=== PATIENT | male | born 1965 | race Caucasian/White ===

== ENCOUNTER 2018-09-15 20:00 | Observation (INO) | payer OTHER ==
[~2018-09-15] VITALS: Ht 180.3 cm; Wt 108.9 kg
[~2018-09-15 20:00] MED LIST: BYETTA5 MCG/0.01; GLUCOPHAGE XR750 MG PO; VICTOZA 2-0.6 MG/0.1 SQ; Z.0.LANTUS100 UNIT/1; Z.0.LOVASTATIN10 MG; Z.0.PRINIVIL10 MG; [UNRECOGNIZED DRUG - OTHER]
[2018-09-15 20:22] LABS: BASOPHILS % 0.5 % (0.0-1.0); EOSINOPHILS # (AUTO) 0.1 (0.0-0.4); EOSINOPHILS % 1.1 % (0.0-6.0); HEMATOCRIT 51.4 % (38.2-49.6); HEMOGLOBIN 17.6 g/dL (14.0-18.0); LYMPHOCYTES # (AUTO) 1.7 (1.0-3.2); LYMPHOCYTES % 19.5 % (18.0-39.1); MEAN CORPUSCULAR HEMOGLOBIN 30.4 pg (28-32); MEAN CORPUSCULAR HGB CONC 34.2 g/dL (31-35); MEAN CORPUSCULAR VOLUME 88.9 fL (81-99); MONOCYTES # (AUTO) 0.7 (0.2-0.8); MONOCYTES % 7.5 % (4.4-11.3); NEUTROPHILS # (AUTO) 6.2 (2.1-6.9); NEUTROPHILS % 71.1 % (38.7-80.0); PLATELET COUNT 178 x10e3/uL (140-360); RED BLOOD COUNT 5.78 x10e6/uL (4.3-5.7); RED CELL DISTRIBUTION WIDTH 11.5 % (11.7-14.4)
--- NOTE | 2018-09-15 20:30 | Diagnostic Imaging Report ---
History:Left-sided facial droop Comparison studies:None Technique: Axial images were obtained from the skull base to the vertex. Coronal and sagittal images reconstructed from the axial data. Intravenous contrast: None Dose modulation, iterative reconstruction, and/or weight based adjustment of the mA/kV was utilized to reduce the radiation dose to as low as reasonably achievable. Findings: Scalp/skull: No abnormalities. Extra-axial spaces: No masses. No fluid collections. Brain sulci: Mildly prominent. Ventricles: Age-appropriate. No hydrocephalus. Parenchyma: No abnormal densities. No masses, hemorrhage, acute or chronic cortical vascular insults. Sellar/suprasellar region: No abnormalities. Craniocervical junction: Patent foramen magnum. No Chiari one malformation. Incidental findings: None. Impression: No acute abnormalities. Chronic findings: 1. Mild generalized cortical volume loss. Signed by: DR Tino Figueroa M.D. on 09/15/2018 8:27 PM
[2018-09-15 20:32] LABS: INR 0.81
[2018-09-15 20:33] LABS: PARTIAL THROMBOPLASTIN TIME 25.5 seconds (23.8-35.5)
--- NOTE | 2018-09-15 20:41 | Diagnostic Imaging Report ---
EXAMINATION: PA and lateral views of the chest. COMPARISON: None CLINICAL HISTORY: Left-sided facial droop DISCUSSION: Lines/tubes: None. Lungs: The lungs are well inflated and clear. No pneumonia or pulmonary edema. Pleura: No pleural effusion or pneumothorax. Heart and mediastinum: The cardiomediastinal silhouette is normal. Bones and soft tissues: No acute bony abnormalities. IMPRESSION: No acute cardiopulmonary abnormalities. Signed by: Dr. Wade Melendez M.D. on 09/15/2018 8:38 PM
[2018-09-15 20:42] LABS: ALANINE AMINOTRANSFERASE 24 IU/L (0-55); ALBUMIN 4.5 g/dL (3.5-5.0); ALBUMIN/GLOBULIN RATIO 1.5 (0.8-2.0); ALKALINE PHOSPHATASE 98 IU/L (40-150); ANION GAP 18.4 mmol/L (8-16); BLOOD UREA NITROGEN 17 mg/dL (7-26); BUN/CREATININE RATIO 21 (6-25); CALCIUM 9.2 mg/dL (8.4-10.2); CARBON DIOXIDE 29 mmol/L (22-29); CHLORIDE 98 mmol/L (98-107); CREATINE KINASE 78 IU/L (30-200); CREATININE, SERUM 0.81 mg/dL (0.72-1.25); EST GLOMERULAR FILTRATION RATE > 60 ML/MIN (60-); GLUCOSE 117 mg/dL (74-118); POTASSIUM 4.4 mmol/L (3.5-5.1); SODIUM 141 mmol/L (136-145)
[2018-09-15 20:48] LABS: BILIRUBIN,URINE NEGATIVE (NEGATIVE); CLARITY,URINE SL CLOUDY (CLEAR); COLOR,URINE YELLOW (YELLOW); KETONES,URINE TRACE (NEGATIVE); LEUKOCYTE ESTERASE ,URINE NEGATIVE (NEGATIVE); NITRITE,URINE NEGATIVE (NEGATIVE); PROTEIN,URINE DIPSTICK NEGATIVE (NEGATIVE); URINE UROBILINOGEN 0.2 mg/dL (0.2 - 1)
--- OUTSIDE RECORDS SUMMARY | 2018-09-15 21:28 | XMS REPORT ---
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 Allergies, Adverse Reactions, Alerts This patient has no known allergies or adverse reactions. Medications This patient has no known medications. Results Test Description Test Time Test Comments Text Results Atomic Results Result Comments CHEST 2 VIEWS 2018-09-15 20:33:00 [place] [address] Patient Name: TRACI VILLAGRAN MR #: [id number] : 1965 Age/Sex: 53/M Req #: [id number] [facility] Physician: Ordered by: BRIGID APPIAH MD Report #: [id number] Location: ER Room/Bed: Procedure: [id number] DX/CHEST 2 VIEWS Exam Date: 09/15/18 Exam Time: 2020 REPORT STATUS: Signed EXAMINATION: PA and lateral views of the chest. COMPAR DOMINGO: None CLINICAL HISTORY: Left-sided facial droop DISCUSSION: Lines/tubes: None. Lungs: The lungs are well inflated and clear. No pneumonia or pulmonary edema. Pleura: No pleural effusion or pneumothorax. Heart and mediastinum: The cardiomediastinal silhouette is normal. Bones and soft tissues: No acute bony abnormalities. IMPRESSION: No acute cardiopulmonary abnormalities. Signed by: Dr. Braxton Copeland M.D. on 09/15/2018 8:38 PM Dictated By: BRAXTON COPELAND MD 37 Transcribed By: CHLOE on 09/15/182037 COPY TO: BRIGID APPIAH MD CT BRAIN WO 2018-09-15 20:25:00 [place] [address] Patient Name: TRACI VILLAGRAN MR #: [id number] : 1965 Age/Sex: 53/M Req #: [id number] Adm Physician: Ordered by: BRIGID APPIAH MD Report #: [id number] Location: ER Room/Bed: Procedure: [id number] CT/CT BRAIN WO Exam Date: Exam Time: REPORT STATUS: Signed History:Left-sided facial droop Comparison studies:None Technique: Axial images were obtained from the skull base to the vertex. Coronal and sagittal images reconstructed from the axial data. Intravenous contrast: None Dose modulation, iterative reconstruction, and/or weight based adjustment of the mA/kV was utilized to reduce the radiation dose to as low as reasonably achievable. Findings: Scalp/skull: No abnormalities. Extra- axial spaces: No masses. No fluid collections. Brain sulci: Mildly prominent. Ventricles: Age-appropriate. No hydrocephalus. Parenchyma: No abnormal densities. No masses, hemorrhage, acute or chronic cortical vascular insults. Sellar/suprasellar region: No abnormalities. Craniocervical junction: Patent foramen magnum. No Chiari one malformation. Incidental findings: None. Impression: No acute abnormalities. Chronic findings: 1. Mild generalized cortical volume loss. Signed by: DR Tino Figueroa M.D. on 09/15/2018 8:27 PM Dictated By: DONALDO FERRERA MD 26 Transcribed By: CHLOE on 09/15/182026 COPY TO: BRIGID APPIAH MD
[2018-09-15] MEDS ORDERED: LISINOPRIL2.5 MG PO (22:12)
[2018-09-15] MEDS ORDERED: NON (22:12)
[2018-09-15] MEDS ORDERED: AMBIEN10 MG PO (22:12)
[2018-09-15] MEDS ORDERED: ZOLPIDEM TARTRATE 10 MG TAB PO ONE (22:15)
[2018-09-15 22:37] VITALS: BP 128/77
[2018-09-15 22:39] VITALS: BP 128/77
[2018-09-16 04:00] VITALS: BP 124/75
[2018-09-16 05:33] LABS: CHOL/HDL RATIO 3.7 (3.9-4.7)
[2018-09-16 07:40] VITALS: BP 113/64
[2018-09-16] MEDS ORDERED: HYDRALAZINE HCL 20 MG/ML VIAL IV PRN (08:15)
[2018-09-16] MEDS ORDERED: ACETAMINOPHEN 325 MG TAB PO PRN (08:15)
[2018-09-16] MEDS ORDERED: ONDANSETRON HCL INJ 2 MG/ML VIAL IV PRN (08:15)
[2018-09-16] MEDS ORDERED: DEXTROSE 50% SYRINGE 50 ML IV PRN (08:15)
[2018-09-16] MEDS ORDERED: LISINOPRIL 2.5 MG TAB PO SCH (09:00)
[2018-09-16] MEDS ORDERED: FAMOTIDINE 20 MG TAB PO SCH (09:00)
[2018-09-16] MEDS ORDERED: ASPIRIN 325 MG TAB EC PO SCH (09:00)
[2018-09-16 11:23] VITALS: BP 122/67
--- NOTE | 2018-09-16 11:43 | Diagnostic Imaging Report ---
EXAMINATION: CT of the cervical spine HISTORY: Tingling sensation in the neck. COMPARISON: None available TECHNIQUE: Multidetector helical axial images were obtained without contrast from the foramen magnum to T1. The images were reconstructed using bone and soft tissue algorithms and were viewed in axial, sagittal and coronal planes. Dose modulation, iterative reconstruction, and/or weight based adjustment of the mA/kV was utilized to reduce the radiation dose to as low as reasonably achievable. FINDINGS: Alignment: Normal alignment and lordosis Soft tissues: Normal Vertebrae: Normal height and density. No acute fracture, infection or neoplasm Degenerative changes: Anterior bridging osteophyte at C3-C5 and from C6 to T2 (DISH). C1-C2: Mild degenerative changes without stenoses. 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 C3-C4: Small disc osteophyte without significant canal or foraminal stenosis. C4-C5: Small disc osteophyte without canal or foraminal stenoses. C5-C6: Small disc osteophyte complex formation, and possible superimposed disc protrusion, moderate canal stenosis. C6-C7: Normal C7-T1: Normal IMPRESSION: 1. Moderate spinal canal stenoses at C2-C3 and C5-C6. 2. No significant foraminal stenosis. 3. The spinal cord cannot be evaluated with CT. Signed by: Dr. Concha Littlejohn M.D. on 09/16/2018 11:39 AM
[2018-09-16] MEDS: INSULIN LISPRO 100 UNIT/1 ML 3ML VIAL SQ SCH ×2 (12:00→16:00)
--- NOTE | 2018-09-16 12:01 | Diagnostic Imaging Report ---
EXAMINATION: MRI of the brain without contrast. HISTORY: Left-sided facial numbness and weakness with facial droop for the last 2 days, cerebrovascular accident. COMPARISON: Head CT on 09/15/2018 TECHNIQUE: Sagittal T2; axial DWI, T2, FLAIR, T1-IR, T2 gradient echo; coronal FLAIR. IMAGE QUALITY: Adequate. FINDINGS: Parenchyma: 1. A few scattered bilateral frontoparietal white matter T2 hyperintense foci, most likely nonspecific minimal chronic microvascular ischemic changes. Otherwise no evidence of abnormal signal intensity or enhancement in the brain parenchyma 2. No mass, hemorrhage, acute or chronic infarcts. Skull: Unremarkable. Vessels: Expected flow voids present in the major arteries and dural sinuses. Mildly prominent right MCA M2 segment near the bifurcation. Extra-axial spaces: No abnormal signal intensity or mass effect. Small right greater than left superior parietal convexity arachnoid cysts without significant mass effect, no midline shift. Brain volume: Mild generalized volume loss. Ventricles: No hydrocephalus or displacement. Foramen magnum: Unremarkable. Sella: Unremarkable. Paranasal / mastoid sinuses: No significant inflammatory disease. IMPRESSION: 1. No acute infarcts. 2. Mild chronic microvascular ischemic changes. Signed by: Dr. Concha Littlejohn M.D. on 09/16/2018 11:58 AM
[2018-09-16 15:24] VITALS: BP 112/57
--- NOTE | 2018-09-16 16:43 | Consultation ---
DATE OF CONSULTATION: September 16, 2018 NEUROLOGY CONSULT NOTE HISTORY OF PRESENT ILLNESS: Mr. Santiago is a 53-year-old lrocw-ctfz-wvmueito man with past medical history significant for hypertension, hyperlipidemia, and diabetes mellitus type 2, admitted to [facility] on September 15, 2018 with symptoms suspicious for a stroke. Beginning 6 days prior to admission, the patient experienced numbness along the left V2 and V3 distributions, left side of the neck, and over the left arm. In addition to the numbness, Mr. Santiago reports mild burning pain and tingling over the left side of the neck, left shoulder, and left arm. Mr. Santiago endorses questionable left facial weakness. He does not report weakness or incoordination of the left hand or arm. He does not report a visual field cut or other disturbance, dysarthria, aphasia, gait impairment, poor balance, dizziness, or confusion. On the day the aforementioned symptoms began, the patient saw a chiropractor for cervical manipulation. Following the cervical adjustment, the symptoms resolved. However, approximally 3 days later, the same symptoms recurred. Once again, Mr. Santiago saw a chiropractor for cervical manipulation. The symptoms resolved for several hours following the cervical adjustment, only to recur the following day. Therefore, Mr. Santiago proceeded to the Emergency Center at [facility] for further evaluation. Upon arrival in the Emergency Center, the patient was afebrile with a blood pressure of 193/102 mmHg and a pulse of 80 beats per minute. His neurological examination was documented as demonstrating mild left-sided facial weakness with "no sparing of forehead." A CT of the brain without contrast was performed while the patient was in the Emergency Center. This study did not reveal recent large territorial ischemia or hemorrhage. Mr. Santiago was admitted to [facility] under observation status for further evaluation and treatment. Mr. Santiago has not experienced similar symptoms previously. 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 Very rarely will he lift computer monitors, CPUs, etc. In addition to these symptoms described above, the patient reports recently worsened psychosocial stress associated with his job. Multiple coworkers have been laid off in recent weeks and months. The patient has accepted a new position with another company. His last day of work is scheduled for Tuesday, September 18, 2018. REVIEW OF SYSTEMS: Left facial numbness, possible left facial weakness, numbness and tingling over the left arm, tinnitus. Otherwise the 12 point review of systems is negative. PAST MEDICAL HISTORY: Hypertension, hyperlipidemia, diabetes mellitus type 2, prior history of nephrolithiasis. PAST SURGICAL HISTORY: Cholecystectomy, plate and screws placed to repair fractures of the 3rd and 4th metacarpals of the left hand, placement of ureteral stent with subsequent removal, multiple lithotripsies. FAMILY MEDICAL HISTORY: The patient's paternal and maternal grandparents are . The paternal grandfather's medical history is unknown. The paternal grandmother is from natural causes. The maternal grandfather's medical history is unknown. The maternal grandmother is from coronary artery disease. Mr. Santiago's father and mother are alive. The father has coronary artery disease. The mother has diabetes mellitus. The patient has one brother, one sister, and one half sister, all of whom are living. The patient's brother has a prior history of skin cancer. His sisters are healthy. Mr. Santiago has one child, a daughter, who is alive and healthy. PAST HOSPITALIZATIONS: Surgeries/procedures as listed, infection of the left foot. SOCIAL HISTORY: Mr. Santiago is . As detailed in the history of present illness, he works in [employer]. The patient reports a remote history of tobacco use. He occasionally smokes cigars. The patient endorses occasional alcohol use. Mr. Santiago does not report current or prior recreational drug use. HOME MEDICATIONS: Lisinopril 2.5 mg by mouth daily, Lovastatin 10 mg by mouth at bedtime daily, metformin XR 1500 mg by mouth daily, Ambien 10 mg by mouth at bedtime daily. ALLERGIES: NO KNOWN DRUG ALLERGIES. NO KNOWN FOOD ALLERGIES. NO KNOWN ALLERGIES TO LATEX. NO KNOWN ALLERGIES TO IODINE OR OTHER CONTRAST MATERIALS. PHYSICAL EXAMINATION: VITAL SIGNS: Height 71 inches, weight 240 pounds. BMI 33.5 kg per meter squared. Blood pressure 122/67 mmHg. Pulse 59 beats per minute. Respiratory rate 16 breaths per minute. Oxygen saturation 96% on room air. GENERAL: The patient is awake and alert. Does not appear distressed. HEENT: Normocephalic and atraumatic. Pupils are equal, round and reactive to light. Moist mucous membranes. NECK: Supple. No appreciable thyromegaly. No appreciable carotid bruits. CARDIOVASCULAR: S1 and S2. Regular rate and rhythm. No murmurs, rubs or gallops. RESPIRATORY: Clear to auscultation bilaterally. No wheezes, rhonchi or rales. EXTREMITIES: The skin is warm and dry. No clubbing, cyanosis or edema. The posterior tibial and dorsalis pedis pulses are 2+ and symmetric. SKIN: No rashes or lesions. NEUROLOGIC: Memory/attention: The patient is awake and alert. Oriented to person, place, time, and situation. CRANIAL NERVES: Cranial nerve I: Not tested. Cranial nerves II, III, IV, : Pupils are equal and round, react briskly to light (from 4 mm to 2 mm). Extraocular movements intact. No nystagmus. Cranial nerve V: Sensation to light touch and pinprick is intact in the bilateral V1 through V3 distributions. Strength of the temporalis and masseter muscles is within normal limits. Cranial nerve VII: The face is symmetric, as are all facial movements. Strength is within normal limits. Cranial nerve VIII: Hearing is intact to finger rub bilaterally. Cranial nerve IX and X: The soft palate elevates equally and symmetrically. Cranial nerve XI: Normal strength of the bilateral sternocleidomastoid and trapezius muscles. Cranial nerve XII: The tongue protrudes midline and moves symmetrically from side to side. STRENGTH: Bulk is normal, and strength is 5/5 in the bilateral deltoids, biceps, triceps, wrist flexors and extensors, finger flexors and extensors, intrinsic hand muscles, hip flexors, knee flexors and extensors, ankle dorsiflexion and plantar flexion, and intrinsic foot muscles except as follows: The left tricep is 4/5, the left 2nd and 3rd finger flexors are 4+/5, the left abductor pollicis brevis is 4/5. Tone is normal. DTRs: Deep tendon reflexes are 1+ and symmetric at the triceps, biceps, brachioradialis, patellas, and Achilles. Plantar responses are flexor bilaterally. Positive Tinel's at the bilateral carpal tunnels and the left cubital tunnel. SENSATION: Intact to light touch and pinprick in both arms and the right leg. Sensation is decreased to light touch and pin prick in the left leg. CEREBELLAR: Hnwbnw-lgff-cuoldx and heel-driscoll movements are intact without dysmetria or other impairment. GAIT: Spontaneous gait is normal. SPEECH: Spontaneous speech is normal without appreciable dysarthria or aphasia. Repetition is intact. INVOLUNTARY MOVEMENTS: None. PRONATOR DRIFT: None. LABORATORY DATA: A comprehensive metabolic panel is unremarkable. Cardiac enzymes are negative times 1. Total cholesterol 165, triglycerides 95, LDL cholesterol 101, HDL cholesterol 45. Fingerstick blood glucose 138. The CBC with differential and platelets reveals a white blood cell count of 8.75 with a normal differential. The hemoglobin and hematocrit are 17.6 and 51.4, respectively. The platelet count is 178,000. The coagulation profile is within normal limits. A urinalysis revealed slightly cloudy urine with 3+ glucose and trace ketones. DIAGNOSTIC STUDIES: Chest x-ray 09/15/2018: No acute cardiopulmonary abnormalities. CT of the brain without contrast 09/15/2018: On my review, there is no evidence of recent large territorial ischemia, hemorrhage, mass, or mass effect. There is mild diffuse cerebral atrophy, more than expected for the patient's age. There are findings compatible with mild chronic small vessel ischemic disease. CT of the cervical spine 09/16/2018: Moderate spinal canal stenoses at C2-C3 and C5-6. No significant foraminal stenosis. The spinal cord cannot be evaluated with CT. MRI brain without contrast 09/16/2018: On my review, there is no evidence of recent large territorial ischemia, hemorrhage, mass or mass effect. There is mild diffuse cerebral atrophy, more than expected for the patient's age. There are few scattered T2/flair hyperintense foci in the supratentorial deep white matter compatible with mild chronic small vessel ischemic disease. Electrocardiogram 09/16/2018: Sinus bradycardia at 53 beats per minute. Echocardiogram 09/16/2018: Ejection fraction 60% to 65%. Concentric left ventricular hypertrophy. Left atrial enlargement. Trace mitral and tricuspid regurgitation. Trace pulmonic insufficiency. Bilateral carotid artery ultrasound with Doppler 09/16/2018: There is no hemodynamically significant atherosclerosis in either carotid artery system. Flow is antegrade in the bilateral vertebral arteries. ASSESSMENT AND PLAN: Mr. Santiago is a 53-year-old mtung-ziml-bbfljqzz man with multiple vascular risk factors admitted to [facility] on September 15, 2018 with numbness and tingling over the left V2 and V3 distributions, the left side of the neck, and the left arm. On neurological examination, there is mild weakness in the left triceps, the second and third finger flexors of the left hand, and left abductor pollicis brevis muscle. There are positive Tinel's at the bilateral carpal tunnels and the left cubital tunnel. Lastly, there is a mildly decreased sensation to light touch and pinprick over the left foreleg. Mr. Santiago's laboratory data and other diagnostic studies have been reviewed and are documented above. In my opinion, Mr. Santiago did not experience a cerebrovascular event. The duration of his symptoms is too long for him to have had a transient ischemic attack. There is no evidence of recent ischemia or hemorrhage on either the CT of the brain without contrast or the MRI of the brain without contrast. There is no evidence of a peripheral 7th cranial neuropathy on neurological examination. In my opinion, Mr. Santiago's symptoms are probably due to cervical radiculopathy, entrapment mononeuropathy, or any combination of these. Further evaluation with a NCV/EMG as an outpatient is recommended. Otherwise, the patient may be discharged to home. Thank you for this consultation. I have advised Mr. Santiago to follow up in my office as an outpatient for further evaluation and treatment of his symptoms. Time spent: 70 minutes. Job#: [id number] [facility] [employer]
[2018-09-16] MEDS ORDERED: ZOLPIDEM TARTRATE 10 MG TAB PO SCH (21:00)
[2018-09-16] MEDS ORDERED: ATORVASTATIN 10 MG TAB PO SCH (21:00)
--- NOTE | 2018-09-16 23:34 | Discharge Summary ---
ADMISSION DIAGNOSES: 1. Left facial and left arm numbness and tingling. 2. Type 2 diabetes. 3. Hypertension. 4. Hyperlipidemia. 5. Insomnia. DISCHARGE DIAGNOSES: 1. Left facial and left arm numbness and tingling. 2. Type 2 diabetes. 3. Hypertension. 4. Hyperlipidemia. 5. Insomnia. 6. Ruled out cerebrovascular accident. 7. Ruled out transient ischemic attack. HISTORY: Patient has a history of type 2 diabetes, hypertension, hyperlipidemia, and insomnia. SURGICAL HISTORY: Cholecystectomy, left hand surgery, left foot surgery. FAMILY HISTORY: Patient's mom has diabetes. SOCIAL HISTORY: Patient admits to smoking an occasional cigar and drinks 1 to 2 glasses of red wine a day. He denies illicit drug use. HOSPITAL COURSE: Updzd-miqo-kwis-old male complains of intermittent tingling and numbness of his left face and left arm that began . On Friday, he went to the chiropractor, which improved the symptoms. There were no symptoms on Friday, Friday, or Friday. Then, on Friday while driving to work, the numbness and tingling reoccurred and worsened throughout the day. Patient denies weakness, dizziness, visual changes, and seizures. He says he had a kaleidoscope effect on his left eye that happened about a month ago and went away on its own, so he never followed up. On admission, patient had a CAT scan of the brain, which showed no acute abnormalities. Chest x-ray showed no thoracic abnormality. Patient had a CT of the C-spine that showed moderate spinal stenosis at C2 to C3 and C5 to C6, no significant foraminal stenosis. MRI of the brain showed no acute infarcts, mild chronic microvascular ischemic changes. Neurology was consulted and has cleared the patient for discharge. Vital signs are stable, patient afebrile. Patient will resume same medicines and follow up with primary care in 1 to 2 weeks. Patient understands discharge instructions and agrees to plan. Dictated by Lena Grajeda NP JANE REDDY MD Job#: [id number]
== END 2018-09-16 17:30 | disposition home or self-care (01) ==
LOC: ER 20:00 → ERHOLD 20:55 → IMCU 21:59
PROVIDERS: ADMIT Internal Medicine; ATTEND Internal Medicine
DX: R29.810 Facial weakness (principal); R20.2 Paresthesia of skin; E78.5 Hyperlipidemia, unspecified; G47.00 Insomnia, unspecified; I10 Essential (primary) hypertension; E11.9 Type 2 diabetes mellitus without complications; Z83.3 Family history of diabetes mellitus; M48.02 Spinal stenosis, cervical region
CPT/HCPCS: 36415 ×2; 70450; 70551; 71046; 72125; 80053; 80061; 81001; 82550; 82553; 82948; 84484; 85025; 85610; 85730; 93005 ×2; 93306; 93880; 97161; 99284; G0378 ×2; G8978; G8979; G8980